=== PATIENT | male | born 1935 | race Hispanic/Latino ===

== ENCOUNTER 2020-01-08 08:05 | Inpatient (IN) | payer MEDICARE ==
[2020-01-08] MEDS ORDERED: Acetaminophen 500 MG TAB ONE (08:43)
[2020-01-08] MEDS ORDERED: Azithromycin 500 MG VIAL ONE (08:43)
[2020-01-08] MEDS ORDERED: Albuterol 200 PUFF (6.7GM INHALER) ONE ×2 (08:57→10:05)
[2020-01-08 09:13] LABS: Hemoglobin 14.1 g/dL (14.0-18.0); Mean Corpuscular HGB CONC 34.9 g/dL (32.0-36.0); Mean Corpuscular Hemoglobin 34.6 pg (27.0-31.0); Mean Corpuscular Volume 99.2 fL (78.0-98.0); RBC Distribution Width 11.1 % (11.5-14.5); Red Blood Cell (RBC) Count 4.08 mill/uL (4.70-6.10); White Blood Cell (WBC) Count 7.2 thou/uL (4.8-10.8)
[2020-01-08 09:19] LABS: ALT (SGPT) 25 U/L (8-55); AST (SGOT) 38 U/L (5-34); Albumin 3.7 g/dL (3.4-4.8); Alkaline Phosphatase 51 U/L (40-110); Anion Gap 13 mmol/L (10-20); BUN (Urea Nitrogen) 17 mg/dL (8.4-25.7); Bilirubin, Total 0.7 mg/dL (0.2-1.2); Calc. Creatinine Clearance 0 mL/min (70-130); Calcium 8.6 mg/dL (7.8-10.44); Carbon Dioxide 24 mmol/L (23-31); Chloride 101 mmol/L (98-107); Estimated GFR-MDRD Greater than 90; Globulin 2.9 g/dL (2.4-3.5); Glucose 153 mg/dL (83-110); Protein, Total 6.6 g/dL (5.8-8.1); Sodium 134 mmol/L (136-145)
[2020-01-08 09:31] LABS: #Lymphocytes 0.8 thou/uL (1.20-3.40); #Monocytes 0.7 thou/uL (0.11-0.59); #Neutrophils 5.3 thou/uL (1.40-6.50); %Eosinophils 0.5 % (0.0-10.0); %Lymphocytes 11.1 % (21.0-51.0); %Monocytes 10.6 % (0.0-10.0); %Neutrophils 77.8 % (42.0-75.0); Mean Platelet Volume 8.9 fL (7.4-10.4); Platelet Count 111 thou/uL (130-400); Platelet Morphology Comment Appears Decreased
[2020-01-08 10:31] LABS: Analyzer IN Cardio ER; Base Excess (BEa) -0.6 mEq/L (-2.0 to +3.0); CO2 Tension 30.5 mmHg (35.0-45.0); Calcium, Ionized (arterial) 1.09 mmol/L (1.12-1.30); Carboxyhemoglobin (COHb) 0.4 gm% (0.0-3.0); Hemoglobin (Hb) 13.4 g/dL (14.0-18.0); O2 Tension (PaO2), arterial 110.2 mmHg (> 60.0); Potassium - ABG Lab 4.04 mmol/L (3.70-5.30); pH, Arterial 7.48 (7.35-7.45)
[2020-01-08 10:32] LABS: Puncture Site LBA
--- NOTE | 2020-01-08 10:34 | PDOC.HHP ---
Hospitalist HPI - History of Present Illness SOB, COVID + History of Present Illness: Mr. Warren is an 84-year-old male with past medical history of hypertension, hyperlipidemia, coronary artery disease status post CABG, hypothyroidism who presents to the emergency room for shortness of breath. Patient reports that he tested positive for Covid 2 days ago, and that his symptoms of Covid started 4 days ago. Of note his is also positive for Covid and she is currently in the hospital requiring oxygen. This morning patient became short of breath, with worsening fevers and chills so decided to present. He currently denies chest pain, abdominal pain. In emergency room initial vital signs 143/64, 78, 26, 93% on room air 99.7. Patient desaturated to high 80s when taken off of nasal cannula. Maintaining O2 sat of 95% on 3 L. Chest x-ray showed bilateral patchy infiltrates. BUN/CR 17/0.79. WBC 7.2 H/H 14.1/40.4. Sodium 134, potassium 4.0. Lactic acid 1.1 D- dimer 0.55, AST/ALT 38/25. CRP 3.75. In emergency room patient received dexamethasone, ceftriaxone, azithromycin, Tylenol and 1 L of normal saline. Patient is Slovak-speaking. History collected with the use of a Slovak inter preter. Hospitalist ROS - Review of Systems Constitutional: reports: fever, chills, weakness, malaise Eyes: denies: pain, vision change ENT: reports: throat pain Respiratory: reports: cough, shortness of breath. denies: hemoptysis, sputum, wheezing Cardiovascular: denies: chest pain, palpitations, orthopnea, light headedness Gastrointestinal: denies: nausea, vomiting, abdominal pain, diarrhea, melena, hematochezia Genitourinary: denies: dysuria Musculoskeletal: denies: neck pain, shoulder pain, arm pain, back pain, hand pain, leg pain, foot pain, other Skin: denies: rash, lesions Neurological: denies: weakness, numbness - Medication Medications: Home medications include Plavix Levothyroxine Simvastatin ProAir Patient poor historian. Will confirm home medications with family and primary care provider. Patient denies any allergies Hospitalist History - Past Medical History Other Medical History: Past medical history of CAD Hypothyroidism Hyperlipidemia Hypertension NKDA - Past Surgical History Other Surgical History: Past surgical history of CABG in 2005 - Family History Other Family History: No pertinent family history - Social History Smoking Status: Never smoker Alcohol: reports: None Drugs: reports: none Living Situation: With Family Activity level: independent ambulation - Exam General Appearance: NAD, awake alert, ill appearing (Diaphoretic) Eye: PERRL, anicteric sclera ENT: normocephalic atraumatic, no oropharyngeal lesions, moist mucosa Neck: supple, symmetric, no JVD, no thyromegaly, no lymphadenopathy, no carotid bruit Heart: RRR, no murmur, no gallops, no rubs, normal peripheral pulses Respiratory - other findings: Rales throughout Gastrointestinal: soft, non-tender, non-distended, normal bowel sounds, no palpable masses, no hepatomegaly, no splenomegaly, no bruit Extremities: 1+ LE edema Skin: normal turgor, no lesions, no rashes Neurological: cranial nerve grossly intact, normal sensation to touch, no weakness, no focal deficits, no new deficit Musculoskeletal: normal tone, normal strength, no muscle wasting Psychiatric: normal affect, normal behavior, A&O x 3 Hospitalist Results - Labs Result Diagrams: 01/08/20 08:42 01/08/20 08:42 Lab results: WBC 7.2 thou/uL (4.8-10.8) 01/08/20 08:42 Hgb 14.1 g/dL (14.0-18.0) 01/08/20 08:42 Hct 40.4 % (42.0-52.0) L 01/08/20 08:42 MCV 99.2 fL (78.0-98.0) H 01/08/20 08:42 Plt Count 111 thou/uL (130-400) L 01/08/20 08:42 Neutrophils % 77.8 % (42.0-75.0) H 01/08/20 08:42 Sodium 134 mmol/L (136-145) L 01/08/20 08:42 Potassium 4.0 mmol/L (3.5-5.1) 01/08/20 08:42 Chloride 101 mmol/L (98-107) 01/08/20 08:42 Carbon Dioxide 24 mmol/L (23-31) 01/08/20 08:42 BUN 17 mg/dL (8.4-25.7) 01/08/20 08:42 Creatinine 0.79 mg/dL (0.7-1.3) 01/08/20 08:42 Glucose 153 mg/dL (83-110) H 01/08/20 08:42 Calcium 8.6 mg/dL (7.8-10.44) 01/08/20 08:42 Total Bilirubin 0.7 mg/dL (0.2-1.2) 01/08/20 08:42 AST 38 U/L (5-34) H 01/08/20 08:42 ALT 25 U/L (8-55) 01/08/20 08:42 Alkaline Phosphatase 51 U/L (40-110) 01/08/20 08:42 Serum Total Protein 6.6 g/dL (5.8-8.1) 01/08/20 08:42 Albumin 3.7 g/dL (3.4-4.8) 01/08/20 08:42 Hospitalist H&P A/P - Plan Plan: COVID PNEUMONIA 84-year-old male with past medical history of hypothyroidism, hyperlipidemia, coronary artery disease who is known Covid tested by primary care provider who presents with shortness of breath. Chest x-ray showed patchy bilateral i nfiltrates. Patient with moderate to severe Covid pneumonia, now requiring oxygen. Maintaining O2 sat on 3 L nasal cannula. White blood cell count 13.2, lactic acid one-point CRP, D-dimer elevated. Of note patient's also hospitalized here with Covid pneumonia. We will start the patient on dex amethasone, convalescent plasma, and see if patient is candidate for remdesivir. Plan Supplemental oxygen Airborne precautions Tylenol prn Ceftriaxone, azithromycin for empiric CAP coverage Dexamethasone Convalescent plasma LFTs for ?remdesevir -Obtain baseline inflammatory markers Acute hypoxic respiratory failure 84-year-old male presented with moderate to severe Covid pneumonia requiring supplemental O2. Patient on 3 L nasal cannula. Acute hypoxic respiratory failure secondary to Covid pneumonia. Plan Supplemental oxygen Continuous pulse ox monitoring Closely monitor respiratory status Hypothyroidism History of hypothyroidism on home levothyroxine. Unable to confirm patient's medications at this time. Will resume once dosage confirmed. Hyperlipidemia History of hyperlipidemia we will continue home statin once dosage confirmed Coronary artery disease History of coronary artery disease. Patient is poor historian and reports heart surgery, which sounds like CABG. On home ASA and Plavix. We will continue once dosage confirmed. DVT prophylaxis- Lovenox FULL CODE Case discussed with Dr. Stratton who is in agreement with assessment and plan.
[2020-01-08] MEDS ORDERED: cefTRIAXone\\ROCEPHIN 1 GM VIAL ONE (10:55)
[2020-01-08] MEDS ORDERED: Dexamethasone 10 MG/ML VIAL ONE ×2 (10:55→10:56)
--- NOTE | 2020-01-08 11:26 | RAD ---
PORTABLE CHEST 1 VIEW: DATE: 01/08/2020. TIME: 11:05 AM. HISTORY: COVID positive. Chest pain, shortness of breath, hiccups, fever. COMPARISON: None. FINDINGS/IMPRESSION: There are changes of median sternotomy. The heart size is normal. The aorta is tortuous. The lungs are expanded with mild patchy infiltrates in the right mid lung. NO pneumothoraces or large effusio ns are seen. POS: [facility]
[2020-01-08] MEDS ORDERED: Ondansetron PF 4 MG/2 ML Vial IVP PRN (11:37)
[2020-01-08] MEDS ORDERED: Acetaminophen 325 MG TAB PO PRN (11:37)
[2020-01-08] MEDS ORDERED: Ondansetron ODT 4 MG TAB PO PRN (11:37)
[2020-01-08] MEDS ORDERED: Senokot S 8.6-50 MG TAB PO PRN (11:37)
[2020-01-08] MEDS ORDERED: Bisacodyl 5 MG TAB PO PRN (11:37)
[2020-01-08] MEDS ORDERED: Albuterol Sulfate 2.5 mg/3 ml Neb IPPB PRN (11:43)
[2020-01-08] MEDS ORDERED: Guaifenesin DM 100-10/5 ML UDCUP PO PRN (11:43)
--- NOTE | 2020-01-08 13:17 | PDOC.EVN ---
Event Note - Event Note Event Note: At approximately noon patient's IV infiltrated running NS. Patient's R hand with swelling and fluid extending up into the wrist. Skin warm, dry and intact. Good peripheral pulses and capillary refill. Sensation intact. No concerns for compartment syndrome at this time. -frequent neurovascular checks -elevate extremity -continue to monitor
[2020-01-08 18:44] VITALS: BMI 30.2
[2020-01-09 05:20] LABS: #Lymphocytes 0.6 thou/uL (1.20-3.40); #Monocytes 0.6 thou/uL (0.11-0.59); #Neutrophils 4.6 thou/uL (1.40-6.50); %Basophils 0.1 % (0.0-1.0); %Eosinophils 0.2 % (0.0-10.0); %Lymphocytes 10.8 % (21.0-51.0); %Monocytes 10.1 % (0.0-10.0); %Neutrophils 78.8 % (42.0-75.0); Hemoglobin 12.9 g/dL (14.0-18.0); Mean Corpuscular HGB CONC 34.9 g/dL (32.0-36.0); Mean Corpuscular Hemoglobin 34.2 pg (27.0-31.0); Mean Corpuscular Volume 97.9 fL (78.0-98.0); Mean Platelet Volume 8.4 fL (7.4-10.4); Platelet Count 111 thou/uL (130-400); Red Blood Cell (RBC) Count 3.77 mill/uL (4.70-6.10); White Blood Cell (WBC) Count 5.8 thou/uL (4.8-10.8)
[2020-01-09 05:40] LABS: Anion Gap 13 mmol/L (10-20); BUN (Urea Nitrogen) 12 mg/dL (8.4-25.7); Calc. Creatinine Clearance 116 mL/min (70-130); Calcium 8.3 mg/dL (7.8-10.44); Carbon Dioxide 24 mmol/L (23-31); Chloride 103 mmol/L (98-107); Estimated GFR-MDRD Greater than 90; Glucose 118 mg/dL (83-110); Sodium 136 mmol/L (136-145)
[2020-01-09] MEDS ORDERED: Levothyroxine Sodium 25 MCG TAB PO SCH (08:30)
[2020-01-09] MEDS ORDERED: FLU VACC QS2020-21(65YR UP)/PF 240 MCG/0.7 ML SYRINGE IM ONE (09:00)
[2020-01-09] MEDS ORDERED: REMDESIVIR (EUA) 200 MG in Sodium Chloride 0.9% 250 ML 210 ML IV SCH (09:00)
[2020-01-09] MEDS: Dexamethasone 4 MG TAB PO SCH (09:11)
[2020-01-09] MEDS: Clopidogrel Bisulfate 75 MG TAB PO SCH (09:15)
[2020-01-09] MEDS: Enoxaparin Sodium 40 MG/0.4 ML SYRINGE SC SCH (09:15)
[2020-01-09] MEDS ORDERED: hydrALAZINE 25 MG TAB PO SCH (10:45)
[2020-01-09] MEDS: cefTRIAXone\\ROCEPHIN 1 GM in Sodium Chloride 0.9% 100 ML IVPB SCH (11:03)
[2020-01-09] MEDS: Azithromycin 500 MG in Sodium Chloride 0.9% 250 ML 250 ML IVPB SCH (12:34)
[2020-01-09] MEDS: hydrALAZINE 25 MG TAB PO SCH ×2 (15:27→20:37)
--- NOTE | 2020-01-09 16:47 | PDOC.HOSPP ---
- Subjective Encounter Date: 01/09/20 Encounter Time: 08:00 Subjective: Patient seen for follow-up regarding COVID-19 pneumonia. Reports cough. Reports body aches. - Objective Vital Signs & Weight: Vital Signs (12 hours) Temp Pulse Resp BP Pulse Ox 01/09/20 15:55 98.9 F 76 16 178/75 H 94 L 01/09/20 15:27 76 01/09/20 11:03 76 01/09/20 09:30 96 01/09/20 09:20 98.9 F 76 16 180/79 H 96 Weight Admit Weight 216 lb Weight 216 lb 14.4 oz I&O: 01/08/20 01/09/20 01/10/20 06:59 06:59 06:59 Intake Total 300 Balance 300 Result Diagrams: 01/09/20 05:02 01/09/20 05:02 Additional Labs: Labs and MAR reviewed by me EKG Reviewed by me: Yes (Telemetry shows normal sinus rhythm) Hospitalist ROS - Review of Systems Constitutional: reports: weakness. denies: fever, chills, sweats, malaise Respiratory: reports: cough, dry. denies: shortness of breath, hemoptysis, SOB with excertion, pleuritic pain, sputum, wheezing Cardiovascular: denies: chest pain, palpitations, orthopnea, paroxysmal noc. dyspnea, edema, light headedness Gastrointestinal: denies: nausea, vomiting, abdominal pain, diarrhea, constipation, melena, hematochezia Genitourinary: denies: dysuria, frequency, incontinence, hematuria, retention - Medication Medications: Active Medications Generic Name Dose Route Start Last Admin Trade Name Calinq PRN Reason Stop Dose Admin Acetaminophen 650 mg 01/08/20 11:37 01/08/20 23:42 Acetaminophen 325 Mg Tab PO 650 mg Q4H PRN Administration Headache/Fever/Mild Pain (1-3) Clopidogrel Bisulfate 75 mg 01/09/20 09:00 01/09/20 09:15 Clopidogrel Bisulfate 75 Mg Tab PO 75 mg DAILY LEONEL Administration Dexamethasone 6 mg 01/09/20 08:00 01/09/20 09:11 Dexamethasone 4 Mg Tab PO 6 mg QAM-WM LEONEL Administration Enoxaparin Sodium 40 mg 01/09/20 09:00 01/09/20 09:15 Enoxaparin Sodium 40 Mg/0.4 Ml Syringe SC 40 mg 0900 LEONEL Administration Hydralazine HCl 25 mg 01/09/20 15:00 01/09/20 15:27 Hydralazine 25 Mg Tab PO 25 mg TID LEONEL Administration Ceftriaxone Sodium 1 gm/ 100 mls @ 200 mls/hr 01/09/20 11:00 01/09/20 11:03 Sodium Chloride IVPB 100 mls 1100 LEONEL Administration Azithromycin 500 mg/ Sodium 250 mls @ 250 mls/hr 01/09/20 09:00 01/09/20 12:34 Chloride IVPB 250 mls 0900 LEONEL Administration - Exam General - other findings: Obese Eye: anicteric sclera ENT: normocephalic atraumatic Neck: supple, symmetric, no thyromegaly, no lymphadenopathy Heart: RRR, no gallops, no rubs, normal peripheral pulses Respiratory: CTAB, no wheezes, no rales, no ronchi, normal chest expansion Gastrointestinal: soft, non-tender, non-distended, normal bowel sounds Psychiatric: normal affect, normal behavior, oriented to person, oriented to place Hosp A/P - Plan -Assessment/plan COVID PNEUMONIA Patient continues to need supplemental oxygen. Start remdesivir. Patient has received convalescent plasma. Follow inflammatory markers. Continue dexamethasone. Continue vitamin C and zinc. Patient is also on ceftriaxone and azithromycin for empiric coverage for community-acquired pneumonia. Acute hypoxic respiratory failure Continue supplemental oxygen. Treat COVID-19 pneumonia. Hypothyroidism Continue Synthroid. Hyperlipidemia Continue statin. Coronary artery disease Stable.
[2020-01-09] MEDS ORDERED: Zinc Sulfate 220 MG CAP PO SCH (18:00)
[2020-01-09] MEDS ORDERED: Ascorbic Acid 500 mg Chewable Tablet PO SCH (18:00)
[2020-01-09] MEDS: Atorvastatin Calcium 40 MG TAB PO SCH (20:37)
[2020-01-10] MEDS ORDERED: Albuterol 200 PUFF (6.7GM INHALER) INH PRN (02:17)
[2020-01-10 05:28] LABS: #Lymphocytes 0.6 thou/uL (1.20-3.40); #Monocytes 0.8 thou/uL (0.11-0.59); %Basophils 0.2 % (0.0-1.0); %Eosinophils 0.1 % (0.0-10.0); %Lymphocytes 9.2 % (21.0-51.0); %Monocytes 12.2 % (0.0-10.0); %Neutrophils 78.3 % (42.0-75.0); Hemoglobin 13.2 g/dL (14.0-18.0); Mean Corpuscular HGB CONC 34.2 g/dL (32.0-36.0); Mean Corpuscular Hemoglobin 33.4 pg (27.0-31.0); Mean Corpuscular Volume 97.7 fL (78.0-98.0); Mean Platelet Volume 8.7 fL (7.4-10.4); Platelet Count 132 thou/uL (130-400); Red Blood Cell (RBC) Count 3.96 mill/uL (4.70-6.10); White Blood Cell (WBC) Count 6.4 thou/uL (4.8-10.8)
[2020-01-10] MEDS: Levothyroxine Sodium 25 MCG TAB PO SCH (05:43)
[2020-01-10 05:51] LABS: Anion Gap 14 mmol/L (10-20); BUN (Urea Nitrogen) 14 mg/dL (8.4-25.7); Calc. Creatinine Clearance 110 mL/min (70-130); Calcium 8.5 mg/dL (7.8-10.44); Carbon Dioxide 24 mmol/L (23-31); Chloride 102 mmol/L (98-107); Estimated GFR-MDRD Greater than 90; Glucose 132 mg/dL (83-110); Potassium 4.2 mmol/L (3.5-5.1); Sodium 136 mmol/L (136-145)
[2020-01-10 05:52] LABS: ALT (SGPT) 23 U/L (8-55); AST (SGOT) 29 U/L (5-34); Albumin 3.3 g/dL (3.4-4.8); Alkaline Phosphatase 47 U/L (40-110); Bilirubin, Direct 0.3 mg/dL (0.1-0.3); Bilirubin, Total 0.6 mg/dL (0.2-1.2); Protein, Total 6.2 g/dL (5.8-8.1)
[2020-01-10] MEDS: Zinc Sulfate 220 MG CAP PO SCH (09:18)
[2020-01-10] MEDS: hydrALAZINE 25 MG TAB PO SCH ×3 (09:19→19:58)
[2020-01-10] MEDS: Ascorbic Acid 500 mg Chewable Tablet PO SCH (09:19)
[2020-01-10] MEDS: Clopidogrel Bisulfate 75 MG TAB PO SCH (09:19)
[2020-01-10] MEDS: Dexamethasone 4 MG TAB PO SCH (09:20)
[2020-01-10] MEDS: Enoxaparin Sodium 40 MG/0.4 ML SYRINGE SC SCH (09:20)
[2020-01-10] MEDS: Azithromycin 500 MG in Sodium Chloride 0.9% 250 ML 250 ML IVPB SCH (09:22)
[2020-01-10] MEDS: REMDESIVIR (EUA) 100 MG in Sodium Chloride 0.9% 250 ML 230 ML IV SCH (11:29)
[2020-01-10] MEDS: cefTRIAXone\\ROCEPHIN 1 GM in Sodium Chloride 0.9% 100 ML IVPB SCH (13:39)
--- NOTE | 2020-01-10 15:55 | PDOC.HOSPP ---
- Subjective Encounter Date: 01/10/20 Encounter Time: 08:00 Subjective: Patient seen for follow-up pneumonia. Reports he feels better. He complains of cough but reports that is improving as well. - Objective Vital Signs & Weight: Vital Signs (12 hours) Temp Pulse Resp BP Pulse Ox 01/10/20 11:42 98.2 F 70 30 H 152/71 H 100 01/10/20 09:15 96.6 F L 75 22 H 154/64 H 98 01/10/20 04:32 99.2 F 69 18 149/69 H 97 Weight Admit Weight 216 lb Weight 215 lb I&O: 01/09/20 01/10/20 01/11/20 06:59 06:59 06:59 Intake Total 300 1340 Output Total 400 Balance 300 940 Result Diagrams: 01/10/20 05:14 01/10/20 05:14 Additional Labs: I reviewed patient's labs and MAR EKG Reviewed by me: Yes (Normal sinus rhythm on telemetry) Hospitalist ROS - Review of Systems Respiratory: reports: cough, dry. denies: shortness of breath, hemoptysis, SOB with excertion, pleuritic pain, sputum, wheezing Cardiovascular: denies: chest pain, palpitations, orthopnea, paroxysmal noc. dyspnea, edema, light headedness - Medication Medications: Active Medications Generic Name Dose Route Start Last Admin Trade Name Freq PRN Reason Stop Dose Admin Acetaminophen 650 mg 01/08/20 11:37 01/08/20 23:42 Acetaminophen 325 Mg Tab PO 650 mg Q4H PRN Administration Headache/Fever/Mild Pain (1-3) Ascorbic Acid 1,000 mg 01/10/20 09:00 01/10/20 09:19 Ascorbic Acid 500 Mg Chewable Tablet PO 1,000 mg DAILY LEONEL Administration Atorvastatin Calcium 40 mg 01/09/20 21:00 01/09/20 20:37 Atorvastatin Calcium 40 Mg Tab PO 40 mg HS LEONEL Administration Clopidogrel Bisulfate 75 mg 01/09/20 09:00 01/10/20 09:19 Clopidogrel Bisulfate 75 Mg Tab PO 75 mg DAILY LEONEL Administration Dexamethasone 6 mg 01/09/20 08:00 01/10/20 09:20 Dexamethasone 4 Mg Tab PO 6 mg QAM-WM LEONEL Administration Enoxaparin Sodium 40 mg 01/09/20 09:00 01/10/20 09:20 Enoxaparin Sodium 40 Mg/0.4 Ml Syringe SC 40 mg 0900 LEONEL Administration Hydralazine HCl 25 mg 01/09/20 15:00 01/10/20 15:45 Hydralazine 25 Mg Tab PO 25 mg TID LEONEL Administration Ceftriaxone Sodium 1 gm/ 100 mls @ 200 mls/hr 01/09/20 11:00 01/10/20 13:39 Sodium Chloride IVPB 100 mls 1100 LEONEL Administration Azithromycin 500 mg/ Sodium 250 mls @ 250 mls/hr 01/09/20 09:00 01/10/20 09:22 Chloride IVPB 250 mls 0900 LEONEL Administration Remdesivir 100 mg/ Sodium 250 mls @ 250 mls/hr 01/10/20 09:00 01/10/20 11:29 Chloride IV 01/13/20 09:59 250 mls Q24HR LEONEL Administration Levothyroxine Sodium 25 mcg 01/10/20 06:00 01/10/20 05:43 Levothyroxine Sodium 25 Mcg Tab PO 25 mcg 0600 LEONEL Administration Sodium Chloride 10 ml 01/08/20 11:32 01/09/20 20:37 Flush - Normal Saline 10 Ml Syringe IVF 10 ml PRN PRN Administration Saline Flush Zinc Sulfate 220 mg 01/10/20 09:00 01/10/20 09:18 Zinc Sulfate 220 Mg Cap PO 220 mg DAILY LEONEL Administration - Exam General - other findings: Obese Eye: anicteric sclera ENT: normocephalic atraumatic Neck: supple Heart: RRR Respiratory: CTAB Gastrointestinal: soft, non-tender Extremities: no edema Skin: no rashes Musculoskeletal: no muscle wasting Psychiatric: normal affect, normal behavior Hosp A/P - Plan -Assessment/plan COVID PNEUMONIA Patient has been transitioned to room air. Continue remdesivir. Status post convalescent plasma. Follow inflammatory markers. Patient is on dexamethasone. Patient is on vitamin C and zinc. Patient is also on ceftriaxone and azithromycin for empiric coverage for community-acquired pneumonia. Acute hypoxic respiratory failure Treat COVID-19 pneumonia. Hypothyroidism Patient is on Synthroid. Hyperlipidemia Patient is on statin. Coronary artery disease Stable.
[2020-01-10] MEDS: Atorvastatin Calcium 40 MG TAB PO SCH (19:58)
[2020-01-11 05:33] LABS: #Lymphocytes 0.7 thou/uL (1.20-3.40); #Monocytes 0.8 thou/uL (0.11-0.59); #Neutrophils 4.1 thou/uL (1.40-6.50); %Basophils 0.2 % (0.0-1.0); %Eosinophils 0.2 % (0.0-10.0); %Lymphocytes 12.7 % (21.0-51.0); %Monocytes 13.6 % (0.0-10.0); %Neutrophils 73.3 % (42.0-75.0); Hemoglobin 13.6 g/dL (14.0-18.0); Mean Corpuscular HGB CONC 34.1 g/dL (32.0-36.0); Mean Corpuscular Hemoglobin 33.6 pg (27.0-31.0); Mean Corpuscular Volume 98.3 fL (78.0-98.0); Mean Platelet Volume 8.9 fL (7.4-10.4); Platelet Count 156 thou/uL (130-400); Red Blood Cell (RBC) Count 4.06 mill/uL (4.70-6.10); White Blood Cell (WBC) Count 5.6 thou/uL (4.8-10.8)
[2020-01-11 05:43] LABS: Anion Gap 12 mmol/L (10-20); BUN (Urea Nitrogen) 17 mg/dL (8.4-25.7); Calc. Creatinine Clearance 111 mL/min (70-130); Calcium 8.5 mg/dL (7.8-10.44); Carbon Dioxide 24 mmol/L (23-31); Chloride 104 mmol/L (98-107); Estimated GFR-MDRD Greater than 90; Glucose 152 mg/dL (83-110); Sodium 136 mmol/L (136-145)
[2020-01-11 05:44] LABS: ALT (SGPT) 25 U/L (8-55); AST (SGOT) 25 U/L (5-34); Albumin 3.3 g/dL (3.4-4.8); Alkaline Phosphatase 51 U/L (40-110); Bilirubin, Direct 0.2 mg/dL (0.1-0.3); Bilirubin, Total 0.5 mg/dL (0.2-1.2); Protein, Total 6.2 g/dL (5.8-8.1)
[2020-01-11] MEDS: Levothyroxine Sodium 25 MCG TAB PO SCH (06:03)
[2020-01-11] MEDS: Ascorbic Acid 500 mg Chewable Tablet PO SCH (10:20)
[2020-01-11] MEDS: Zinc Sulfate 220 MG CAP PO SCH (10:20)
[2020-01-11] MEDS: Dexamethasone 4 MG TAB PO SCH (10:21)
[2020-01-11] MEDS: Clopidogrel Bisulfate 75 MG TAB PO SCH (10:22)
[2020-01-11] MEDS: Azithromycin 500 MG in Sodium Chloride 0.9% 250 ML 250 ML IVPB SCH ×2 (10:23→13:20)
[2020-01-11] MEDS: Enoxaparin Sodium 40 MG/0.4 ML SYRINGE SC SCH (10:24)
[2020-01-11] MEDS: hydrALAZINE 25 MG TAB PO SCH ×3 (10:24→21:32)
[2020-01-11] MEDS: REMDESIVIR (EUA) 100 MG in Sodium Chloride 0.9% 250 ML 230 ML IV SCH ×2 (10:24→11:03)
[2020-01-11] MEDS ORDERED: Sodium Chloride 0.9% 100 ML ONE (10:28)
[2020-01-11] MEDS: cefTRIAXone\\ROCEPHIN 1 GM in Sodium Chloride 0.9% 100 ML IVPB SCH (10:30)
--- NOTE | 2020-01-11 17:09 | PDOC.HOSPP ---
- Subjective Encounter Date: 01/11/20 Encounter Time: 11:00 Subjective: Patient seen for follow-up regarding COVID-19 infection. Reports occasional cough but is feeling better overall. He denies any weakness. - Objective Vital Signs & Weight: Vital Signs (12 hours) Temp Pulse Resp BP BP Pulse Ox 01/11/20 16:00 97.4 F L 67 18 191/78 H 94 L 01/11/20 15:25 69 01/11/20 11:43 69 20 140/65 94 L 01/11/20 10:24 60 01/11/20 08:00 97.5 F L 60 20 174/81 H 94 L Weight Admit Weight 216 lb Weight 213 lb 8 oz I&O: 01/10/20 01/11/20 01/12/20 06:59 06:59 06:59 Intake Total 1340 1890 Output Total 400 1900 Balance 940 -10 Result Diagrams: 01/11/20 04:50 01/11/20 04:50 Additional Labs: Labs and MAR reviewed by me EKG Reviewed by me: Yes (Telemetry shows normal sinus rhythm) Hospitalist ROS - Review of Systems Respiratory: reports: cough, dry. denies: shortness of breath, hemoptysis, SOB with excertion, pleuritic pain, sputum, wheezing Cardiovascular: denies: chest pain, palpitations, orthopnea, paroxysmal noc. dyspnea, edema, light headedness Gastrointestinal: denies: nausea, vomiting, abdominal pain, diarrhea, constipation, melena, hematochezia - Medication Medications: Active Medications Generic Name Dose Route Start Last Admin Trade Name Freq PRN Reason Stop Dose Admin Acetaminophen 650 mg 01/08/20 11:37 01/08/20 23:42 Acetaminophen 325 Mg Tab PO 650 mg Q4H PRN Administration Headache/Fever/Mild Pain (1-3) Ascorbic Acid 1,000 mg 01/10/20 09:00 01/11/20 10:20 Ascorbic Acid 500 Mg Chewable Tablet PO 1,000 mg DAILY LEONEL Administration Atorvastatin Calcium 40 mg 01/09/20 21:00 01/10/20 19:58 Atorvastatin Calcium 40 Mg Tab PO 40 mg HS LEONEL Administration Clopidogrel Bisulfate 75 mg 01/09/20 09:00 01/11/20 10:22 Clopidogrel Bisulfate 75 Mg Tab PO 75 mg DAILY LEONEL Administration Dexamethasone 6 mg 01/09/20 08:00 01/11/20 10:21 Dexamethasone 4 Mg Tab PO 6 mg QAM-WM LEONEL Administration Enoxaparin Sodium 40 mg 01/09/20 09:00 01/11/20 10:24 Enoxaparin Sodium 40 Mg/0.4 Ml Syringe SC 40 mg 0900 LEONEL Administration Hydralazine HCl 25 mg 01/09/20 15:00 01/11/20 15:25 Hydralazine 25 Mg Tab PO 25 mg TID LEONEL Administration Ceftriaxone Sodium 1 gm/ 100 mls @ 200 mls/hr 01/09/20 11:00 01/11/20 10:30 Sodium Chloride IVPB 100 mls 1100 LEONEL Administration Azithromycin 500 mg/ Sodium 250 mls @ 250 mls/hr 01/09/20 09:00 01/11/20 13:20 Chloride IVPB 250 mls 0900 LEONEL Administration Remdesivir 100 mg/ Sodium 250 mls @ 250 mls/hr 01/10/20 09:00 01/11/20 11:03 Chloride IV 01/13/20 09:59 250 mls Q24HR LEONEL Administration Levothyroxine Sodium 25 mcg 01/10/20 06:00 01/11/20 06:03 Levothyroxine Sodium 25 Mcg Tab PO 25 mcg 0600 LEONEL Administration Sodium Chloride 10 ml 01/08/20 11:32 01/10/20 19:59 Flush - Normal Saline 10 Ml Syringe IVF 10 ml PRN PRN Administration Saline Flush Zinc Sulfate 220 mg 01/10/20 09:00 01/11/20 10:20 Zinc Sulfate 220 Mg Cap PO 220 mg DAILY LEONEL Administration - Exam General Appearance: awake alert ENT: normocephalic atraumatic, no oropharyngeal lesions Neck: no lymphadenopathy Heart: RRR Respiratory: CTAB Gastrointestinal: normal bowel sounds Skin: no rashes Psychiatric: normal affect, normal behavior Hosp A/P - Plan -Assessment/plan COVID PNEUMONIA Patient is currently on 2 L of oxygen. Receiving remdesivir. Status post convalescent plasma. Continue dexamethasone. Continue vitamin C and zinc. Continue ceftriaxone and azithromycin, start cefdinir. Acute hypoxic respiratory failure Continue to treat COVID-19 pneumonia. Hypothyroidism Continue Synthroid. Hyperlipidemia Continue statin. Coronary artery disease Stable.
[2020-01-11] MEDS: Atorvastatin Calcium 40 MG TAB PO SCH (21:32)
[2020-01-12 05:21] LABS: #Lymphocytes 0.9 thou/uL (1.20-3.40); #Neutrophils 5.5 thou/uL (1.40-6.50); %Basophils 0.5 % (0.0-1.0); %Eosinophils 0.5 % (0.0-10.0); %Lymphocytes 12.2 % (21.0-51.0); %Monocytes 13.5 % (0.0-10.0); %Neutrophils 73.3 % (42.0-75.0); Hemoglobin 13.4 g/dL (14.0-18.0); Mean Corpuscular HGB CONC 34.3 g/dL (32.0-36.0); Mean Corpuscular Hemoglobin 33.6 pg (27.0-31.0); Mean Corpuscular Volume 97.9 fL (78.0-98.0); Mean Platelet Volume 8.4 fL (7.4-10.4); Platelet Count 182 thou/uL (130-400); RBC Distribution Width 10.9 % (11.5-14.5); Red Blood Cell (RBC) Count 3.99 mill/uL (4.70-6.10); White Blood Cell (WBC) Count 7.5 thou/uL (4.8-10.8)
[2020-01-12 05:46] LABS: Anion Gap 13 mmol/L (10-20); BUN (Urea Nitrogen) 21 mg/dL (8.4-25.7); Calc. Creatinine Clearance 98 mL/min (70-130); Calcium 8.6 mg/dL (7.8-10.44); Carbon Dioxide 25 mmol/L (23-31); Chloride 105 mmol/L (98-107); Estimated GFR-MDRD Greater than 90; Glucose 172 mg/dL (83-110); Potassium 4.2 mmol/L (3.5-5.1); Sodium 139 mmol/L (136-145)
[2020-01-12 05:47] LABS: ALT (SGPT) 26 U/L (8-55); AST (SGOT) 23 U/L (5-34); Albumin 3.4 g/dL (3.4-4.8); Alkaline Phosphatase 53 U/L (40-110); Bilirubin, Direct 0.2 mg/dL (0.1-0.3); Bilirubin, Total 0.4 mg/dL (0.2-1.2)
[2020-01-12] MEDS: Levothyroxine Sodium 25 MCG TAB PO SCH (06:19)
[2020-01-12] MEDS: Ascorbic Acid 500 mg Chewable Tablet PO SCH (08:47)
[2020-01-12] MEDS: Dexamethasone 4 MG TAB PO SCH (08:47)
[2020-01-12] MEDS: hydrALAZINE 25 MG TAB PO SCH ×3 (08:48→20:26)
[2020-01-12] MEDS: Azithromycin 500 MG in Sodium Chloride 0.9% 250 ML 250 ML IVPB SCH (08:49)
[2020-01-12] MEDS: Clopidogrel Bisulfate 75 MG TAB PO SCH (08:49)
[2020-01-12] MEDS: Zinc Sulfate 220 MG CAP PO SCH (08:49)
[2020-01-12] MEDS: Enoxaparin Sodium 40 MG/0.4 ML SYRINGE SC SCH (08:50)
[2020-01-12] MEDS: REMDESIVIR (EUA) 100 MG in Sodium Chloride 0.9% 250 ML 230 ML IV SCH ×2 (08:51→10:54)
[2020-01-12] MEDS: cefTRIAXone\\ROCEPHIN 1 GM in Sodium Chloride 0.9% 100 ML IVPB SCH (10:55)
--- NOTE | 2020-01-12 18:28 | PDOC.HOSPP ---
- Subjective Encounter Date: 01/12/20 Encounter Time: 09:00 Subjective: Patient seen for follow-up for COVID-19 pneumonia. He reports feeling better. Reports cough is better as well. - Objective Vital Signs & Weight: Vital Signs (12 hours) Temp Pulse Resp BP BP Pulse Ox 01/12/20 15:27 65 01/12/20 15:25 97.6 F 59 L 18 187/79 H 94 L 01/12/20 12:00 97.2 F L 65 16 156/77 H 93 L 01/12/20 08:48 62 01/12/20 08:00 96.8 F L 68 17 152/72 H 92 L Weight Admit Weight 216 lb Weight 213 lb 8 oz I&O: 01/11/20 01/12/20 01/13/20 06:59 06:59 06:59 Intake Total 1890 1400 Output Total 1900 680 Balance -10 720 Result Diagrams: 01/12/20 05:11 01/12/20 05:11 Additional Labs: I reviewed patient's labs and MAR EKG Reviewed by me: Yes (Normal sinus rhythm on telemetry) Hospitalist ROS - Review of Systems Respiratory: reports: cough, dry. denies: shortness of breath, hemoptysis, SOB with excertion, pleuritic pain, sputum, wheezing Gastrointestinal: denies: nausea, vomiting, abdominal pain, diarrhea, constipation, melena, hematochezia - Medication Medications: Active Medications Generic Name Dose Route Start Last Admin Trade Name Freq PRN Reason Stop Dose Admin Acetaminophen 650 mg 01/08/20 11:37 01/08/20 23:42 Acetaminophen 325 Mg Tab PO 650 mg Q4H PRN Administration Headache/Fever/Mild Pain (1-3) Ascorbic Acid 1,000 mg 01/10/20 09:00 01/12/20 08:47 Ascorbic Acid 500 Mg Chewable Tablet PO 1,000 mg DAILY LEONEL Administration Atorvastatin Calcium 40 mg 01/09/20 21:00 01/11/20 21:32 Atorvastatin Calcium 40 Mg Tab PO 40 mg HS LEONEL Administration Clopidogrel Bisulfate 75 mg 01/09/20 09:00 01/12/20 08:49 Clopidogrel Bisulfate 75 Mg Tab PO 75 mg DAILY LEONEL Administration Dexamethasone 6 mg 01/09/20 08:00 01/12/20 08:47 Dexamethasone 4 Mg Tab PO 6 mg QAM-WM LEONEL Administration Enoxaparin Sodium 40 mg 01/09/20 09:00 01/12/20 08:50 Enoxaparin Sodium 40 Mg/0.4 Ml Syringe SC 40 mg 0900 LEONEL Administration Hydralazine HCl 25 mg 01/09/20 15:00 01/12/20 15:27 Hydralazine 25 Mg Tab PO 25 mg TID LEONEL Administration Ceftriaxone Sodium 1 gm/ 100 mls @ 200 mls/hr 01/09/20 11:00 01/12/20 10:55 Sodium Chloride IVPB 100 mls 1100 LEONEL Administration Azithromycin 500 mg/ Sodium 250 mls @ 250 mls/hr 01/09/20 09:00 01/12/20 08:49 Chloride IVPB 250 mls 0900 LEONEL Administration Remdesivir 100 mg/ Sodium 250 mls @ 250 mls/hr 01/10/20 09:00 01/12/20 10:54 Chloride IV 01/13/20 09:59 250 mls Q24HR LEONEL Administration Levothyroxine Sodium 25 mcg 01/10/20 06:00 01/12/20 06:19 Levothyroxine Sodium 25 Mcg Tab PO 25 mcg 0600 LEONEL Administration Sodium Chloride 10 ml 01/08/20 11:32 01/10/20 19:59 Flush - Normal Saline 10 Ml Syringe IVF 10 ml PRN PRN Administration Saline Flush Zinc Sulfate 220 mg 01/10/20 09:00 01/12/20 08:49 Zinc Sulfate 220 Mg Cap PO 220 mg DAILY LEONEL Administration - Exam General Appearance: awake alert Eye: anicteric sclera ENT: moist mucosa Neck: supple Heart: RRR Respiratory: CTAB, normal chest expansion Gastrointestinal: soft, normal bowel sounds Extremities: no clubbing Skin: no rashes Psychiatric: normal affect, normal behavior Hosp A/P - Plan -Assessment/plan COVID PNEUMONIA Patient is currently on 2 L of oxygen. Patient's last dose of remdesivir is tomorrow. He has received convalescent plasma. Continue dexamethasone, vitamin C and zinc. Acute hypoxic respiratory failure Continue to treat COVID-19 pneumonia. Hypothyroidism Patient is on Synthroid. Hyperlipidemia Patient is a statin. Coronary artery disease Stable.
[2020-01-12] MEDS: Atorvastatin Calcium 40 MG TAB PO SCH (20:21)
[2020-01-12] MEDS: Cefdinir 300 MG CAP PO SCH (20:21)
[2020-01-13 05:27] LABS: #Lymphocytes 1.1 thou/uL (1.20-3.40); #Monocytes 0.9 thou/uL (0.11-0.59); #Neutrophils 5.9 thou/uL (1.40-6.50); %Basophils 0.2 % (0.0-1.0); %Eosinophils 0.6 % (0.0-10.0); %Lymphocytes 14.2 % (21.0-51.0); Hemoglobin 13.7 g/dL (14.0-18.0); Mean Corpuscular HGB CONC 34.6 g/dL (32.0-36.0); Mean Corpuscular Hemoglobin 33.9 pg (27.0-31.0); Mean Corpuscular Volume 97.9 fL (78.0-98.0); Mean Platelet Volume 8.5 fL (7.4-10.4); Platelet Count 199 thou/uL (130-400); RBC Distribution Width 10.9 % (11.5-14.5); Red Blood Cell (RBC) Count 4.05 mill/uL (4.70-6.10); White Blood Cell (WBC) Count 7.9 thou/uL (4.8-10.8)
[2020-01-13] MEDS: Levothyroxine Sodium 25 MCG TAB PO SCH (05:38)
[2020-01-13 05:48] LABS: Anion Gap 12 mmol/L (10-20); BUN (Urea Nitrogen) 19 mg/dL (8.4-25.7); Calc. Creatinine Clearance 101 mL/min (70-130); Calcium 8.7 mg/dL (7.8-10.44); Carbon Dioxide 26 mmol/L (23-31); Chloride 104 mmol/L (98-107); Estimated GFR-MDRD Greater than 90; Glucose 143 mg/dL (83-110); Potassium 4.2 mmol/L (3.5-5.1); Sodium 138 mmol/L (136-145)
[2020-01-13 05:53] LABS: ALT (SGPT) 28 U/L (8-55); AST (SGOT) 21 U/L (5-34); Albumin 3.4 g/dL (3.4-4.8); Alkaline Phosphatase 54 U/L (40-110); Bilirubin, Direct 0.2 mg/dL (0.1-0.3); Bilirubin, Total 0.4 mg/dL (0.2-1.2); Protein, Total 6.1 g/dL (5.8-8.1)
[2020-01-13] MEDS: Dexamethasone 4 MG TAB PO SCH (07:20)
[2020-01-13] MEDS: Enoxaparin Sodium 40 MG/0.4 ML SYRINGE SC SCH (07:21)
[2020-01-13] MEDS: Ascorbic Acid 500 mg Chewable Tablet PO SCH (07:21)
[2020-01-13] MEDS: Cefdinir 300 MG CAP PO SCH (07:21)
[2020-01-13] MEDS: Clopidogrel Bisulfate 75 MG TAB PO SCH (07:21)
[2020-01-13] MEDS: Zinc Sulfate 220 MG CAP PO SCH (07:22)
[2020-01-13] MEDS: hydrALAZINE 25 MG TAB PO SCH (07:22)
[2020-01-13] MEDS: REMDESIVIR (EUA) 100 MG in Sodium Chloride 0.9% 250 ML 230 ML IV SCH (09:40)
[2020-01-13 12:16] VITALS: BP 144/67; TEMP 98.2
--- NOTE | 2020-01-13 14:31 | PDOC.DS.DS ---
Provider - Provider Date of Admission: 01/08/20 11:12 Date of Discharge: 01/13/20 Admitting Provider: Radha Stratton MD Primary Care Physician: RADHA OLEA Course - Hospital Course Resuscitation Status: 01/08/20 11:32 Resuscitation Status Routine Co-Sign Provider: Resuscitation Status: FULL: Full Resuscitation - Labs Lab Results: 01/13/20 05:15 01/13/20 05:15 Abnormal Lab Results - Last 48 hrs 01/12/20 05:11: RBC 3.99 L, Hgb 13.4 L, Hct 39.0 L, MCH 33.6 H, RDW 10.9 L, Lymphocytes % 12.2 L, Monocytes % 13.5 H, Lymphocytes # 0.9 L, Monocytes # 1.0 H 01/12/20 05:11: Lactate Dehydrogenase 278 H 01/12/20 05:11: C-Reactive Protein 1.10 H 01/12/20 05:11: Ferritin 455.70 H 01/12/20 05:11: D-Dimer 0.47 H 01/13/20 05:15: RBC 4.05 L, Hgb 13.7 L, Hct 39.6 L, MCH 33.9 H, RDW 10.9 L, Lymphocytes % 14.2 L, Monocytes % 11.0 H, Lymphocytes # 1.1 L, Monocytes # 0.9 H Microbiology - Entire Visit 01/08/20 08:41 Venous blood - Left Arm Blood Culture - Final NO GROWTH IN 5 DAYS 01/08/20 08:41 Venous blood - Right Arm Blood Culture - Final NO GROWTH IN 5 DAYS 01/08/20 10:49 Venous blood - Left Arm Blood Culture - Preliminary NO GROWTH AT 48 HOURS 01/08/20 10:49 Venous blood - Left Arm Blood Culture - Preliminary NO GROWTH AT 48 HOURS - Physical Exam Vitals: Vital Signs (12 hours) Temp Pulse Resp BP BP Pulse Ox 01/13/20 12:15 98.2 F 70 18 144/67 H 98 01/13/20 10:28 93 L 01/13/20 07:45 98 F 59 L 18 162/74 H 95 01/13/20 03:17 98.4 F 57 L 20 159/74 H 94 L 01/13/20 03:07 97 Weight Admit Weight 216 lb Weight 213 lb 8 oz Physical Exam: The patient was seen and examined on the day of discharge. Patient denies chest pain or shortness of breath. Vital signs are stable. S1 and S2 are heard. Lungs are clear to auscultation bilaterally. Problem - Discharge Plan Assessment: Discharge diagnosis: 1. Acute hypoxic respiratory failure 2. COVID-19 pneumonia 3. Hypertension, new diagnosis 4. Hypoalbuminemia 5. Hyponatremia Hospital course: Patient is a pleasant 84-year-old gentleman who was admitted to the hospital on January 08, 2020 for acute hypoxic respiratory failure secondary to COVID-19 pneumonia. He received convalescent plasma. He also received a course of remdesivir. He also received dexamethasone, vitamin C and zinc. His blood pressures were found to be elevated and he has been started on hydralazine. He improved clinically. On the day of discharge, he is saturating well on room air even with exercise. He is being discharged home in a stable condition. Discharge destination: Home Total amount of time spent coordinating this discharge: 31 minutes Plan - Discharge Medications Prescriptions: hydrALAZINE [Apresoline] 25 mg PO TID #90 tab Dexamethasone 6 mg PO DAILY #5 tablet Cefdinir [Omnicef] 300 mg PO BID #10 cap Benzonatate [Tessalon] 100 mg PO TID PRN #30 cap PRN Reason: Cough Ascorbic Acid [Vitamin C] 1,000 mg PO DAILY #5 tablet Zinc Sulfate [Zinc-220] 220 mg PO DAILY #5 capsule Home Medications: Medication Instructions Recorded Confirmed Type Clopidogrel Bisulfate [Plavix] 75 mg PO DAILY 01/08/20 01/08/20 History Levothyroxine Sodium [Synthroid] 25 mcg PO DAILY 01/08/20 01/08/20 History Simvastatin 80 mg PO HS 01/08/20 01/08/20 History Ascorbic Acid [Vitamin C] 1,000 mg PO DAILY #5 tablet 01/13/20 Rx Benzonatate [Tessalon] 100 mg PO TID PRN #30 cap 01/13/20 Rx Cefdinir [Omnicef] 300 mg PO BID #10 cap 01/13/20 Rx Dexamethasone 6 mg PO DAILY #5 tablet 01/13/20 Rx Zinc Sulfate [Zinc-220] 220 mg PO DAILY #5 capsule 01/13/20 Rx hydrALAZINE [Apresoline] 25 mg PO TID #90 tab 01/13/20 Rx Allergies: No Known Allergies Allergy (Verified 01/08/20 20:13) per pt/family - Discharge Instructions Discharge Instructions:: Check your blood pressure and heart rate 3 times a day and shows readings to your primary care provider. Activity:: Activity as Tolerated Nourishment:: Heart Healthy Diet - Follow up Plan Referrals: RADHA OLEA [Primary Care Provider] - 3 Days Disposition: HOME Quality - Care Measures CORE MEASURES:: N/A
== END 2020-01-13 17:35 | disposition home or self-care (01) | DRG 177 ==
LOC: ERS 08:05 → ERHOLD 11:12 → 2SW 18:28
PROVIDERS: ADMIT Internal Medicine; ATTEND Internal Medicine
PROC: XW13325 Transfusion of Convalescent Plasma (Nonautologous) into Peripheral Vein, Percutaneous Approach, New Technology Group 5 (ICD-10-PCS; principal; 2020-01-08)
PROC: 8E0ZXY6 Isolation (ICD-10-PCS; 2020-01-08)
PROC: XW033E5 Introduction of Remdesivir Anti-infective into Peripheral Vein, Percutaneous Approach, New Technology Group 5 (ICD-10-PCS; 2020-01-09)
DX: U07.1 COVID-19 (principal); J12.89 Other viral pneumonia; J96.01 Acute respiratory failure with hypoxia; E87.1 Hypo-osmolality and hyponatremia; I25.10 Atherosclerotic heart disease of native coronary artery without angina pectoris; E03.9 Hypothyroidism, unspecified; E78.5 Hyperlipidemia, unspecified; I10 Essential (primary) hypertension; F32.9 Major depressive disorder, single episode, unspecified; E88.09 Other disorders of plasma-protein metabolism, not elsewhere classified; Z28.21 Immunization not carried out because of patient refusal; Z95.1 Presence of aortocoronary bypass graft; Z79.899 Other long term (current) drug therapy; Z79.890 Hormone replacement therapy; Z79.02 Long term (current) use of antithrombotics/antiplatelets
CPT/HCPCS: 36415; 36430; 36600; 71045; 80048; 80053; 80076; 82728; 82805; 83605; 83615; 85025; 85379; 86140; 86850; 86900; 86901; 87040; 94664; 94760; 96365; 96366; 96367; 96375; J0456; J0696; J1100; J1650; J3490; J7050; J8540; P9017

== ENCOUNTER 2024-03-08 04:48 | Inpatient (IN) | payer MEDICARE, OTHER ==
[2024-03-08] MEDS ORDERED: DOBUTamine 500 mg/250 ml 250 ML ONE (04:53)
[2024-03-08 05:21] LABS: Actual Bicarbonate (HCO3v) 20.4 mEq/L (22-28); Base Excess -5.2 mEq/L (-2.0 to +3.0); Calcium, Ionized (venous) 1.14 mmol/L (1.16-1.32); Chloride (VBG) 106 mmol/L (98-106); Hematocrit-VBG 44 % (42.0-52.0); Hemoglobin (Hb) 15.1 g/dL (12.6-17.4); Potassium (VBG) 4.49 mmol/L (3.70-5.30); Sodium 140 mmol/L (133-146); pH (venous) 7.324 (7.32-7.43)
[2024-03-08 05:34] LABS: ALT (SGPT) 14 U/L (Less than 45); AST (SGOT) 18 U/L (11-34); Albumin 3.4 g/dL (3.1-4.5); Alkaline Phosphatase 59 U/L (40-110); Anion Gap 11 mmol/L (10-20); BUN (Urea Nitrogen) 21 mg/dL (8.4-25.7); Calc. Creatinine Clearance 0 mL/min (70-130); Calcium 8.3 mg/dL (7.8-10.44); Carbon Dioxide 23 mmol/L (23-31); Chloride 111 mmol/L (98-107); Estimated GFR 62; Globulin 2.5 g/dL (2.4-3.5); Glucose 134 mg/dL (83-110); Potassium 4.5 mmol/L (3.5-5.1); Protein, Total 5.9 g/dL (5.8-8.1); Sodium 140 mmol/L (136-145)
[2024-03-08 05:37] LABS: Troponin I 0.066 ng/mL (< 0.028)
[2024-03-08 05:39] LABS: #Basophils 0.03 10x3/uL (0.0-0.2); %Basophils 0.3 % (0.0-1.0); %Eosinophils 2.1 % (0.0-10.0); %Lymphocytes 6.8 % (21.0-51.0); %Monocytes 10.8 % (0.0-10.0); %Neutrophils 79.5 % (42.0-75.0); Hematocrit 40.6 % (42.0-52.0); Hemoglobin 13.7 g/dL (14.0-18.0); Mean Corpuscular HGB CONC 33.7 g/dL (32.0-36.0); Mean Corpuscular Hemoglobin 32.9 pg (27.0-31.0); Mean Corpuscular Volume 97.4 fL (78.0-98.0); Mean Platelet Volume 11.7 fL (7.4-10.4); Platelet Adequacy Comment Platelets Decreased; Platelet Count 107 10x3/uL (130-400); RBC Distribution Width 12.2 % (11.5-14.5); RBC Morphology Within Normal Limits; Red Blood Cell (RBC) Count 4.17 mill/uL (4.70-6.10)
[2024-03-08] MEDS ORDERED: Aspirin Chewable 81 MG TAB ONE (05:47)
[2024-03-08 06:13] LABS: Bilirubin, Total 0.7 mg/dL (0.3-1.2)
[2024-03-08] MEDS ORDERED: Furosemide 20 MG (2 mL) VIAL ONE (06:49)
[2024-03-08 08:37] LABS: Bacteria/HPF None Seen HPF (None Seen); Bilirubin Negative (Negative); Blood, Urine Negative (Negative); CAUTI Indications for Culture Fever or rigors; Clarity Clear (Clear); Glucose, Urine (Dipstick) Normal (Negative); Ketone, Urine Negative (Negative); Leukocyte Negative Leu/uL (Negative); Nitrite Negative (Negative); Protein, Urine (Dipstick) Negative (Neg-Trace); RBC/HPF None Seen HPF (0-3); Specific Gravity, Urine 1.012 (1.002-1.036); Squamous Epithelial None Seen HPF (0-3); Urobilinogen Normal mg/dL (Less than 2); WBC/HPF 0-3 HPF (0-3)
[2024-03-08 08:43] LABS: Urine Culture Reflex No No
[2024-03-08 08:49] LABS: Troponin I 0.078 ng/mL (< 0.028)
[2024-03-08] MEDS ORDERED: Ipratropium/Albuterol 3 ML NEB NEB PRN (11:14)
[2024-03-08] MEDS ORDERED: Ipratropium/Albuterol 3 ML NEB ONE (11:40)
[2024-03-08] MEDS: Ipratropium/Albuterol 3 ML NEB NEB SCH ×2 (11:54→19:36)
[2024-03-08] MEDS ORDERED: hydrALAZINE 20 MG/ML VIAL ONE (12:19)
[2024-03-08] MEDS ORDERED: Ondansetron PF 4 MG/2 ML Vial ONE (12:23)
[2024-03-08] MEDS: Ondansetron PF 4 MG/2 ML Vial IVP PRN (12:30)
[2024-03-08] MEDS: hydrALAZINE 20 MG/ML VIAL SLOW IVP PRN (12:30)
[2024-03-08] MEDS ORDERED: Furosemide 40 MG (4 mL) VIAL ONE (12:43)
[2024-03-08] MEDS: Furosemide 40 MG (4 mL) VIAL SLOW IVP SCH ×2 (12:59→19:54)
[2024-03-08] MEDS ORDERED: Promethazine HCl 25 MG/ML VIAL ONE (13:56)
[2024-03-08] MEDS: Promethazine HCl 25 MG in Sodium Chloride 0.9% 50 ML IVPB PRN (14:08)
[2024-03-08] MEDS ORDERED: Acetaminophen 500 MG TAB ONE (14:09)
[2024-03-08] MEDS ORDERED: Acetaminophen 325 MG TAB ONE (14:13)
[2024-03-08] MEDS ORDERED: Piperacillin/Tazobactam 3.375 GM VIAL ONE (15:06)
[2024-03-08] MEDS ORDERED: Sodium Chloride 0.9% 100 ML ONE (15:06)
[2024-03-08] MEDS: Piperacillin/Tazobactam 3.375 GM in Sodium Chloride 0.9% 100 ML IVPB SCH ×2 (15:07→19:55)
[2024-03-08 18:34] VITALS: BMI 31.4
[2024-03-08 20:30] LABS: Troponin I 0.106 ng/mL (< 0.028)
[2024-03-08] MEDS ORDERED: Piperacillin/Tazobactam 4.5 GM in Sodium Chloride 0.9% 100 ML IVPB SCH (22:00)
[2024-03-09 04:40] LABS: #Basophils Less than 0.03 10x3/uL (0.0-0.2); #Eosinophils Less than 0.03 10x3/uL (0.0-0.7); %Basophils 0.2 % (0.0-1.0); %Lymphocytes 4.5 % (21.0-51.0); %Monocytes 12.4 % (0.0-10.0); %Neutrophils 82.4 % (42.0-75.0); Hematocrit 42.9 % (42.0-52.0); Hemoglobin 14.1 g/dL (14.0-18.0); Mean Corpuscular HGB CONC 32.9 g/dL (32.0-36.0); Mean Corpuscular Hemoglobin 32.8 pg (27.0-31.0); Mean Corpuscular Volume 99.8 fL (78.0-98.0); Mean Platelet Volume 12.5 fL (7.4-10.4); Platelet Count 101 10x3/uL (130-400); RBC Distribution Width 12.4 % (11.5-14.5)
[2024-03-09 04:54] LABS: Anion Gap 13 mmol/L (10-20); BUN (Urea Nitrogen) 25 mg/dL (8.4-25.7); Calc. Creatinine Clearance 51 mL/min (70-130); Calcium 8.9 mg/dL (7.8-10.44); Carbon Dioxide 25 mmol/L (23-31); Chloride 105 mmol/L (98-107); Estimated GFR 46; Glucose 139 mg/dL (83-110); Potassium 3.9 mmol/L (3.5-5.1); Sodium 139 mmol/L (136-145)
[2024-03-09] MEDS: Furosemide 40 MG (4 mL) VIAL SLOW IVP SCH (09:27)
[2024-03-09] MEDS: Acetaminophen 650 MG/20.3 ML UDCUP PO PRN (11:49)
[2024-03-09] MEDS: Guaifenesin DM 100-10/5 ML UDCUP PO PRN (16:23)
[2024-03-09] MEDS ORDERED: Nateglinide 120 MG TAB PO SCH (16:30)
[2024-03-09] MEDS: FLU (Fluad Triv) TS24-25 (65UP)/MF59C/PF 45 MCG/0.5 ML Syringe IM ONE (17:44)
[2024-03-09] MEDS: Atorvastatin Calcium 40 MG TAB PO SCH (21:18)
[2024-03-10] MEDS: Levothyroxine Sodium 25 MCG TAB PO SCH (06:54)
[2024-03-10] MEDS: Ranolazine ER 500 MG TAB PO SCH (08:50)
[2024-03-10] MEDS: Nateglinide 120 MG TAB PO SCH (08:50)
[2024-03-10] MEDS: Lisinopril 10 MG TAB PO SCH (08:50)
[2024-03-10] MEDS: Clopidogrel Bisulfate 75 MG TAB PO SCH (08:51)
[2024-03-10 09:00] LABS: Anion Gap 12 mmol/L (10-20); BUN (Urea Nitrogen) 24 mg/dL (8.4-25.7); Calc. Creatinine Clearance 65 mL/min (70-130); Calcium 8.4 mg/dL (7.8-10.44); Carbon Dioxide 29 mmol/L (23-31); Chloride 103 mmol/L (98-107); Estimated GFR 62; Glucose 118 mg/dL (83-110); Sodium 140 mmol/L (136-145)
[2024-03-10 09:09] LABS: #Basophils Less than 0.03 10x3/uL (0.0-0.2); #Eosinophils Less than 0.03 10x3/uL (0.0-0.7); %Basophils 0.3 % (0.0-1.0); %Eosinophils 0.3 % (0.0-10.0); %Lymphocytes 13.7 % (21.0-51.0); %Monocytes 16.9 % (0.0-10.0); %Neutrophils 68.4 % (42.0-75.0); Hematocrit 41.9 % (42.0-52.0); Hemoglobin 13.7 g/dL (14.0-18.0); Mean Corpuscular HGB CONC 32.7 g/dL (32.0-36.0); Mean Corpuscular Hemoglobin 32.9 pg (27.0-31.0); Mean Corpuscular Volume 100.7 fL (78.0-98.0); Mean Platelet Volume 11.9 fL (7.4-10.4); Platelet Count 101 10x3/uL (130-400); RBC Distribution Width 12.2 % (11.5-14.5); Red Blood Cell (RBC) Count 4.16 mill/uL (4.70-6.10)
[2024-03-10] MEDS ORDERED: Ipratropium/Albuterol 3 ML NEB NEB PRN (15:23)
[2024-03-11 05:35] LABS: Anion Gap 15 mmol/L (10-20); BUN (Urea Nitrogen) 25 mg/dL (8.4-25.7); Calc. Creatinine Clearance 66 mL/min (70-130); Calcium 8.7 mg/dL (7.8-10.44); Carbon Dioxide 26 mmol/L (23-31); Chloride 102 mmol/L (98-107); Estimated GFR 62; Glucose 101 mg/dL (83-110); Potassium 3.7 mmol/L (3.5-5.1); Sodium 139 mmol/L (136-145)
[2024-03-11 05:42] LABS: #Basophils 0.03 10x3/uL (0.0-0.2); %Basophils 0.5 % (0.0-1.0); %Lymphocytes 17.5 % (21.0-51.0); %Monocytes 16.7 % (0.0-10.0); Hematocrit 42.7 % (42.0-52.0); Hemoglobin 14.1 g/dL (14.0-18.0); Mean Corpuscular Hemoglobin 32.5 pg (27.0-31.0); Mean Corpuscular Volume 98.4 fL (78.0-98.0); Mean Platelet Volume 12.3 fL (7.4-10.4); Platelet Count 104 10x3/uL (130-400); RBC Distribution Width 11.9 % (11.5-14.5); Red Blood Cell (RBC) Count 4.34 mill/uL (4.70-6.10)
[2024-03-12 04:30] LABS: #Basophils Less than 0.03 10x3/uL (0.0-0.2); %Basophils 0.4 % (0.0-1.0); %Eosinophils 1.8 % (0.0-10.0); %Lymphocytes 16.1 % (21.0-51.0); %Monocytes 14.2 % (0.0-10.0); %Neutrophils 67.1 % (42.0-75.0); Hematocrit 41.4 % (42.0-52.0); Hemoglobin 13.6 g/dL (14.0-18.0); Mean Corpuscular HGB CONC 32.9 g/dL (32.0-36.0); Mean Corpuscular Hemoglobin 32.5 pg (27.0-31.0); Mean Corpuscular Volume 98.8 fL (78.0-98.0); Platelet Count 111 10x3/uL (130-400); RBC Distribution Width 11.9 % (11.5-14.5); Red Blood Cell (RBC) Count 4.19 mill/uL (4.70-6.10)
[2024-03-12 04:35] LABS: Anion Gap 14 mmol/L (10-20); BUN (Urea Nitrogen) 28 mg/dL (8.4-25.7); Calc. Creatinine Clearance 63 mL/min (70-130); Calcium 8.8 mg/dL (7.8-10.44); Carbon Dioxide 29 mmol/L (23-31); Chloride 101 mmol/L (98-107); Estimated GFR 59; Glucose 109 mg/dL (83-110); Potassium 3.7 mmol/L (3.5-5.1); Sodium 140 mmol/L (136-145)
[2024-03-12 16:15] VITALS: BP 144/83; TEMP 97.4
[2024-03-12] MEDS ORDERED: Amoxicillin/Potassium Clav 875 MG TAB PO SCH (21:00)
== END 2024-03-12 20:42 | disposition home or self-care (01) | DRG 177 ==
LOC: ERS 04:48 → ERHOLD 06:55 → PCU 17:11 → OBSVTOIN 03-09 13:46
PROVIDERS: ADMIT Student in an Organized Health Care Education/Training Program; ATTEND Internal Medicine
DX: J15.69 Pneumonia due to other Gram-negative bacteria (principal); G93.41 Metabolic encephalopathy; I50.33 Acute on chronic diastolic (congestive) heart failure; I5A Non-ischemic myocardial injury (non-traumatic); J69.0 Pneumonitis due to inhalation of food and vomit; I11.0 Hypertensive heart disease with heart failure; R00.1 Bradycardia, unspecified; I25.10 Atherosclerotic heart disease of native coronary artery without angina pectoris; E03.9 Hypothyroidism, unspecified; I95.9 Hypotension, unspecified; I35.0 Nonrheumatic aortic (valve) stenosis; E78.5 Hyperlipidemia, unspecified; N28.89 Other specified disorders of kidney and ureter; Z98.890 Other specified postprocedural states; Z95.0 Presence of cardiac pacemaker; Z95.1 Presence of aortocoronary bypass graft
CPT/HCPCS: 36415; 36416; 70450; 71045; 71250; 80048; 80053; 81001; 82805; 83605; 83735; 83880; 84443; 84484; 85025; 87040; 87428; 93005; 93306; 94640; 94760; 96374; 96375; J0360; J1250; J1940; J2405; J2543; J2550; J7620